=== PATIENT | female | born 1995 | race Caucasian/White ===

== ENCOUNTER 2018-05-25 10:46 | Observation (INO) | payer OTHER ==
[~2018-05-25] VITALS: Ht 162.6 cm; Wt 57.4 kg
[~2018-05-25 10:46] MED LIST: Amoxil400 MG/5 M PO; CEPH500 PO; SULTRIDS PO; Zofran4 MG PO
[2018-05-25 11:27] LABS: BASOPHILS ABSOLUTE AUTO 0.05 K/mm3 (0.00-0.23); BASOPHILS PERCENT AUTO 0 % (0-2); EOSINOPHILS ABSOLUTE AUTO 0.02 K/mm3 (0.00-0.68); EOSINOPHILS PERCENT AUTO 0 % (0-6); Hematocrit 38.7 % (33.0-51.0); Hemoglobin 12.5 g/dL (11.5-16.0); IMMATURE GRAN PERCENT AUTO 1 % (0-1); LYMPHOCYTES PERCENT AUTO 9 % (21-46); MONOCYTES ABSOLUTE AUTO 1.04 K/mm3 (0.16-1.47); MONOCYTES PERCENT AUTO 8 % (4-13); Mean Corpuscular HGB Conc 32.3 g/dL (31.5-36.5); Mean Corpuscular Volume 87 fL (80-100); Mean Platelet Volume 10.2 fL (9.1-12.4); NEUTROPHILS ABSOLUTE AUTO 11.27 K/mm3 (1.96-9.15); NEUTROPHILS PERCENT AUTO 82 % (41-73); Platelet Count 224 K/mm3 (150-400); RDW Coefficient Variation 13.7 % (11.7-14.2); RDW Standard Deviation 43.2 fL (35.1-46.3); Red Blood Cell Count 4.47 M/mm3 (3.80-5.20); White Blood Cell Count 13.78 K/mm3 (4.00-11.30)
[2018-05-25 11:52] LABS: Source, Urine Clean Catch
[2018-05-25 12:08] LABS: Alanine Aminotransfer (ALT/SGP 20 U/L (12-78); Albumin, Blood 3.6 g/dL (3.4-5.0); Albumin/Globulin Ratio 0.7 (0.8-1.8); Alk Phos 79 U/L (50-136); Anion Gap 11 mmol/L (6-16); Aspartate Aminotrans (AST/SGOT 17 U/L (12-37); Bilirubin, Total 0.5 mg/dL (0.1-1.0); Blood Urea Nitrogen 9 mg/dL (8-24); Bun/Creatinine Ratio 11.4 (12.0-20.0); CO2, Blood 25 mmol/L (21-32); Chloride, Blood 99 mmol/L (98-108); Creatinine, Blood 0.79 mg/dL (0.40-1.00); Glomerular Filtration Rate >60 (60-); Glucose, Blood 109 mg/dL (70-99); Potassium, Blood 3.4 mmol/L (3.5-5.5); Sodium, Blood 135 mmol/L (136-145); Total Protein, Blood 8.6 g/dL (6.4-8.2)
[2018-05-25 12:14] LABS: Bilirubin, Urine Neg (Neg); Blood, Urine 5+ (Neg); Glucose Qualitative, Urine Neg (Neg); Ketones, Urine 1+ (Neg); Leukocyte Esterase, Urine 3+ (Neg); Nitrite, Urine Pos (Neg); Protein, Urine 2+ (Neg); Urobilinogen, Urine 2+ (Normal)
[2018-05-25 12:28] LABS: Appearance, Urine Cloudy (Clear); Color, Urine Yellow (P-Yellow)
[2018-05-25 12:29] LABS: White Blood Cells, Urine 25-50 /hpf (0-5)
[2018-05-25 12:30] LABS: Bacteria Many /hpf; Squamous Epithelial Cells Mod /hpf (Few)
[2018-05-25 13:04] LABS: Influenza A Negative (NEGATIVE); Influenza B Negative (NEGATIVE)
[2018-05-25 15:27] LABS: Glucose, CSF 68 mg/dL (40-70)
[2018-05-25 15:30] LABS: Automated CSF WBC Count 0.003 K/mm3 (0-5); WBC Count, CSF 3 /mm3 (0-5)
[2018-05-25 15:33] LABS: Automated CSF WBC Count 0.002 K/mm3 (0-5); WBC Count, CSF 2 /mm3 (0-5)
[2018-05-25 15:54] LABS: Appearance, CSF Clear (Clear); Color, CSF No Color (No Color)
[2018-05-25 15:55] LABS: RBC Count, CSF 0 /mm3 (0-0)
[2018-05-25 15:56] LABS: Appearance, CSF Clear (Clear); Color, CSF No Color (No Color); RBC Count, CSF 0 /mm3 (0-0)
[2018-05-25 16:58] LABS: Cryptococcus Neoformans/Gattii Not Detected (NOT DETECT); Enterovirus Not Detected (NOT DETECT); Escherichia Coli K1 Not Detected (NOT DETECT); Haemophilus Influenza Not Detected (NOT DETECT); Herpes Simplex Virus 1 Not Detected (NOT DETECT); Herpes Simplex Virus 2 Not Detected (NOT DETECT); Human Herpesvirus 6 Not Detected (NOT DETECT); Human Parechovirus Not Detected (NOT DETECT); Listeria Monocytogenes Not Detected (NOT DETECT); Neisseria Meningitidis Not Detected (NOT DETECT); Streptococcus Agalactiae Not Detected (NOT DETECT); Streptococcus Pneumoniae Not Detected (NOT DETECT); Varicella Zoster Virus Not Detected (NOT DETECT)
--- NOTE | 2018-05-25 19:49 | NUR ---
ADMIT NOTE RECEIVED REPORT FROM KEYLA ZIMMER RN IN ED. PT TO ROOM VIA [facility], 2 PERSON ASSIST WITH SLIDER SHEET TO BED. PT/FAMILY ORIENTED TO ROOM AND CALL LIGHT. BED IN LOW, CALL LIGHT WITHIN REACH AND BED ALARM ON. PT RESPONDS TO TACTILE WITH VERBAL STIMULI, PT STATES SHE IT TIRED AND EASILY FALLS BACK ASLEEP WITHOUT ANSWERING QUESTIONS. FAMILY REPORTS PT IS HARD TO AROUSE WHEN SHE IS SLEEPING. PT A&OX4. PT SLEEPY AND NOT COOPERATIVE WITH CARE. PT REPROTS PAIN IN NECK, 10/15, CONCERNED WITH MEDICATING DUE TO LACK OF RESPONSIVENESS. PT BREATHING EVEN AND UNLABORED, LS CLEAR AND 100% ON RA. PT DENIES NAUSEA DURING ASSESSMENT. PT RECEIVIGN IV ANTIBIOTICS AND IV POTASSIUM IN ED. OFFERED FLU SHOT, PT REFUSED STATING "I DONT KNOW" AND REFUSED LOVENOX INJECTION AT THIS TIME. HR ELEVATED, OTHER VSS. REPORT GIVEN TO ONCOMING RN.
--- NOTE | 2018-05-25 22:14 | NUR ---
PREVIOUS IV INFILTRATED SO NEW 20G IV PLACED TO L.HAND W/IVF AND KRIDER RESTARTED. PT IS VERY DROWSY, AWAKES TO PAINFUL STIMULI BUT FALLS BACK TO SLEEP QUICKLY. SHE LACKS INTERACTION AND MOTIVATION TO FOLLOW INSTRUCTION OR ANSWER Q'S AT THIS TIME, LIKELY D/T ILLNESS. SHE OBSERVED TO BE WEAK AND IS ABLE TO MOVE EXT'S X4 BUT LAYS THERE ASLEEP OPTING NOT TO DO SO. WILL MONITOR FOR CHANGES BUT SEEMS STABLE AT THIS TIME.
--- NOTE | 2018-05-26 04:05 | NUR ---
SUMMARY: PT IS A/OX4, CAN SPECIFY NEEDS BUT HAS BEEN VERY DROWSY AND SLEPT MAJORITY OF SHIFT. SHE AWOKE TO TACTILE STIMULI INITIALLY BUT NOT TO VOICE ALONE AND WAS VERY WITHDRAWN, LACKING INTERACTION. SHE HAS SINCE BECOME MORE ALERT AND SHOWERED THIS SHIFT, GAIT NOTED TO BE STABLE. PT DENIED NEEDING PRN MEDS AND REFUSED THE FLU VACCINE AND LOVENOX INJECTION. HER PREVIOUS IV INFILTRATED SO A NEW 20G IV WAS PLACED TO HER L.HAND. NS INFUSED AT 150 ML/HR AND KRIDER WAS COMPLETED THIS SHIFT. RESPS ARE E/U ON RA W/CLEAR LS AND SPO2 WNL. VSS AND AFEBRILE, NO ACUTE CHANGES. WILL MONITOR AND REPORT TO DAY RN.
[2018-05-26 04:49] LABS: BASOPHILS ABSOLUTE AUTO 0.01 K/mm3 (0.00-0.23); BASOPHILS PERCENT AUTO 0 % (0-2); EOSINOPHILS PERCENT AUTO 0 % (0-6); Hemoglobin 10.6 g/dL (11.5-16.0); IMMATURE GRAN ABSOLUTE AUTO 0.06 K/mm3 (0.00-0.10); IMMATURE GRAN PERCENT AUTO 1 % (0-1); LYMPHOCYTES ABSOLUTE AUTO 0.83 K/mm3 (0.84-5.20); LYMPHOCYTES PERCENT AUTO 8 % (21-46); MONOCYTES ABSOLUTE AUTO 0.92 K/mm3 (0.16-1.47); MONOCYTES PERCENT AUTO 9 % (4-13); Mean Corpuscular HGB 27.5 pg (26.0-34.0); Mean Corpuscular HGB Conc 32.1 g/dL (31.5-36.5); Mean Corpuscular Volume 86 fL (80-100); Mean Platelet Volume 10.4 fL (9.1-12.4); NEUTROPHILS PERCENT AUTO 82 % (41-73); Platelet Count 204 K/mm3 (150-400); RDW Coefficient Variation 13.6 % (11.7-14.2); RDW Standard Deviation 42.3 fL (35.1-46.3); Red Blood Cell Count 3.85 M/mm3 (3.80-5.20); White Blood Cell Count 10.12 K/mm3 (4.00-11.30)
[2018-05-26 05:14] LABS: Anion Gap 9 mmol/L (6-16); Blood Urea Nitrogen 13 mg/dL (8-24); Bun/Creatinine Ratio 19.1 (12.0-20.0); CO2, Blood 25 mmol/L (21-32); Calcium, Blood 8.5 mg/dL (8.5-10.1); Chloride, Blood 105 mmol/L (98-108); Creatinine, Blood 0.68 mg/dL (0.40-1.00); Glomerular Filtration Rate >60 (60-); Glucose, Blood 174 mg/dL (70-99); Potassium, Blood 3.9 mmol/L (3.5-5.5); Sodium, Blood 139 mmol/L (136-145)
--- NOTE | 2018-05-26 11:04 | NUR ---
PT IS A&OX4, SITTING ON THE EDGE OF THE BED. PT REQUESTING TO LEAVE SOON POSSIBLE DUE TO THE MOTHER HAVING AN EMERGENCY IN [place]. NOTIFIED DR URRUTIA, SHE PLANS TO COME SEE PT SHORTLY. EDUCATED PT ON THE OPTION TO LEAVE AMA, THE RISK OF WORSENING SYMPTOMS AND POSSIBLILTY OF AND THE NEED TO FOLLOW UP WITH WITH MEDICAL CARE AFTER MOTHERS EMERGENCY IF SHE DECIDES TO LEAVE AMA. DR URRUTIA AT BEDSIDE NOW.
[2018-05-26] MEDS ORDERED: ACET325 PO (11:27)
[2018-05-26] MEDS ORDERED: Augmentin 875-1 EACH PO (11:28)
[2018-05-26] MEDS ORDERED: Culturelle1 CAP PO (11:29)
--- NOTE | 2018-05-26 11:46 | NUR ---
DISCHARGE SUMMARY PT REQUESTING TO LEAVE DUE TO FAMILY EMERGENCY. DR URRUTIA IN TO SEE PT, NEW ORDERS FOR DISCHARGE. PT A&OX4 THIS AFTERNOON. COOPERATIVE WITH CARE. PT REPORTS NECK AND LOWER BACK TENDERNESS. PT DENIES SOB AND N/V DURING SHIFT. PT RECEIVED ONE DOSE OF IV ANTIBIOTICS LAST NIGHT. PT RESTING IN BED THIS AM, IND IN ROOM. VSS. NO OTHER ACUTE CHANGES NOTED DURING SHIFT. PT EDUCATED ON DISCHARGE INSTRUCTIONS, MEDICATIONS AND THE IMPORTANCE OF FOLLOWING UP WITH PCP. PRESCRIPTIONS SENT TO [facility] PER PT REQUEST. PT LEFT ROOM ON FOOT AT 1141. PT STABLE UPON DISCHARGE.
--- NOTE | 2018-05-26 12:06 | NUR ---
DR URRUTIA NOTIFIED THIS RN THAT URINE SPECIMEN HAS GROWTH AND TO CALL AND NOTIFY THE PT SHE HAS ALREADY DISCHARGE. CALLED THE NUMBER ON FILE. NO VOICEMAIL SENT UP.
== END 2018-05-26 11:41 | disposition home or self-care (01) ==
LOC: ER 10:46 → MEDS 10:47 → ER 16:02 → MEDS 16:02 → ENPENDDIS 05-26 11:00 → MEDS 05-26 11:41
PROVIDERS: Emergency Medicine; ADMIT Internal Medicine
DX: A41.9 Sepsis, unspecified organism (principal); N30.00 Acute cystitis without hematuria; J02.9 Acute pharyngitis, unspecified; E87.6 Hypokalemia
CPT/HCPCS: 36415; 62270; 71046; 80048; 80053; 81001; 81025; 82945; 83605; 84157; 85025; 86308; 87040; 87070; 87077; 87081; 87086; 87186; 87205; 87430; 87483; 87804; 89051; 96361-59; 96365-59; 96368; 96375-59; 99285-25; J0780; J1100; J1200; J1885; J3480; J7030

== ENCOUNTER 2018-09-09 20:15 | Emergency (ER) | payer OTHER ==
[~2018-09-09] VITALS: Ht 162.6 cm; Wt 54.4 kg
[~2018-09-09 20:15] MED LIST changes: +ACET325 PO; +Augmentin 875-1 EACH PO; +Culturelle1 CAP PO
[2018-09-09 20:40] LABS: Source, Urine Clean Catch
[2018-09-09 20:42] LABS: Appearance, Urine Cloudy (Clear); Bilirubin, Urine Neg (Neg); Blood, Urine 3+ (Neg); Color, Urine Amber (P-Yellow); Glucose Qualitative, Urine Neg (Neg); Ketones, Urine Neg (Neg); Leukocyte Esterase, Urine 3+ (Neg); Nitrite, Urine Pos (Neg); Protein, Urine 3+ (Neg); Urobilinogen, Urine NORM (Normal)
[2018-09-09 20:48] LABS: Bacteria Many /hpf; Red Blood Cells, Urine 0-2 /hpf (0-2); Squamous Epithelial Cells Many /hpf (Few); White Blood Cells, Urine TNTC /hpf (0-5)
[2018-09-09 21:04] LABS: BASOPHILS ABSOLUTE AUTO 0.03 K/mm3 (0.00-0.23); BASOPHILS PERCENT AUTO 0 % (0-2); EOSINOPHILS ABSOLUTE AUTO 0.02 K/mm3 (0.00-0.68); EOSINOPHILS PERCENT AUTO 0 % (0-6); Hematocrit 36.6 % (33.0-51.0); Hemoglobin 11.7 g/dL (11.5-16.0); IMMATURE GRAN ABSOLUTE AUTO 0.06 K/mm3 (0.00-0.10); IMMATURE GRAN PERCENT AUTO 0 % (0-1); LYMPHOCYTES ABSOLUTE AUTO 0.93 K/mm3 (0.84-5.20); LYMPHOCYTES PERCENT AUTO 7 % (21-46); MONOCYTES ABSOLUTE AUTO 1.15 K/mm3 (0.16-1.47); MONOCYTES PERCENT AUTO 8 % (4-13); Mean Corpuscular HGB 28.3 pg (26.0-34.0); Mean Corpuscular Volume 89 fL (80-100); Mean Platelet Volume 10.2 fL (9.1-12.4); NEUTROPHILS ABSOLUTE AUTO 11.91 K/mm3 (1.96-9.15); NEUTROPHILS PERCENT AUTO 85 % (41-73); Platelet Count 174 K/mm3 (150-400); RDW Coefficient Variation 13.2 % (11.7-14.2); RDW Standard Deviation 42.8 fL (35.1-46.3); Red Blood Cell Count 4.13 M/mm3 (3.80-5.20)
[2018-09-09 21:11] LABS: Alanine Aminotransfer (ALT/SGP 27 U/L (12-78); Albumin, Blood 3.7 g/dL (3.4-5.0); Albumin/Globulin Ratio 0.8 (0.8-1.8); Alk Phos 77 U/L (50-136); Anion Gap 5 mmol/L (6-16); Aspartate Aminotrans (AST/SGOT 15 U/L (12-37); Bilirubin, Total 0.7 mg/dL (0.1-1.0); Blood Urea Nitrogen 12 mg/dL (8-24); Bun/Creatinine Ratio 12.1 (12.0-20.0); CO2, Blood 28 mmol/L (21-32); Calcium, Blood 9.1 mg/dL (8.5-10.1); Chloride, Blood 99 mmol/L (98-108); Creatinine, Blood 0.99 mg/dL (0.40-1.00); Globulin, Blood 4.5 g/dL (2.2-4.0); Glomerular Filtration Rate >60 (60-); Glucose, Blood 144 mg/dL (70-99); Potassium, Blood 3.6 mmol/L (3.5-5.5); Sodium, Blood 132 mmol/L (136-145); Total Protein, Blood 8.2 g/dL (6.4-8.2)
[2018-09-09] MEDS ORDERED: CEPH500 PO (21:22)
[2018-09-09] MEDS ORDERED: Zofran4 MG PO (21:22)
== END 2018-09-09 21:34 | disposition home or self-care (01) ==
LOC: ER 20:15
PROVIDERS: Physician Assistant
DX: N12 Tubulo-interstitial nephritis, not specified as acute or chronic (principal)
CPT/HCPCS: 36415; 80053; 81001; 85025; 87077; 87086; 87186; 99283